=== PATIENT | female | born 1940 | race African-American/Black ===

== ENCOUNTER 2017-03-30 11:51 | Emergency (ER) | payer MEDICARE ==
[~2017-03-30] VITALS: Ht 172.7 cm; Wt 90.0 kg
[~2017-03-30 11:51] MED LIST: AMLO10 PO; ATOR20TA42 PO; BENA25TA8 PO; CLOP75 PO; COMMODE 3:1; LISI-363 PO; LOPR50TA12 PO; METO50CR PO; PRED20 PO; WALKER ROLLING; WHEELCHAIR RENTAL RA
[2017-03-30 11:57] VITALS: BP_SYST 221; BP_SYST 234; BP_DIAS 101; BP_DIAS 117; PULSE 66; RESP 16; TEMP 98.1; O2SAT 95
[2017-03-30 12:42] VITALS: BP 223/104; PULSE 63; RESP 16; O2SAT 93
[2017-03-30] MEDS ORDERED: SODIUM CHLOR 0.9% 1000 ML INJ 1,000 ML IV SCH (12:46)
[2017-03-30] MEDS ORDERED: ONDANSETRON HCL 4 MG/2 ML VIAL IVP ONE (13:00)
[2017-03-30] MEDS ORDERED: MORPHINE SULFATE 4 MG/ML INJ IV PUSH ONE (13:00)
[2017-03-30] MEDS ORDERED: PLAV75TA29 PO (13:05)
[2017-03-30] MEDS ORDERED: ARIC5TAB2 PO (13:05)
[2017-03-30] MEDS ORDERED: LIPI20TA PO (13:05)
[2017-03-30] MEDS ORDERED: LISI-515 PO (13:05)
[2017-03-30] MEDS ORDERED: TOPR50TA PO (13:05)
[2017-03-30] MEDS ORDERED: AMLO10TA2 PO (13:05)
--- NOTE | 2017-03-30 13:11 | PD ---
HPI Chief Complaint: Abdominal Pain Time Seen by Provider: 13:03 Travel History International Travel<30 days: No Contact w/Intl Traveler<30days: No Traveled to known affect area: No History of Present Illness HPI 77-year-old female that presents to the ED for evaluation of right upper quadrant abdominal pain. Per patient she's had this since this morning. Per patient she went to synagogue and during synagogue the pain became more severe. Per patient the pain feels colicky passing comes and goes and gets better and worse. She still has her gallbladder. She denies any recent surgeries. She states that she felt nauseous but no vomiting. No fevers chills or sweats. No chest pain. No shortness of breath. Pain is mainly on the right upper quadrant of the abdomen as well as just below the breast. She denies any rashes. No sick contacts. Patient does state that she has a history of hypertension and has not taken any of her medications for the past 5 days because the pharmacy does not have the medications ready for her. She has no chest pain. She does have a history of CVA in the past. No headache. No blurry vision. No bowel movement or urinary issues. No history of kidney stones. Has not taken anything for this. Pain per patient gets to be severe 8 out of 10 and gets to be 3 out of 10 which is what she has now. Per patient the pain is almost gone now during my evaluation. PFSH Past Medical History Arthritis: Yes (Knee and Shoulder ) Autoimmune Disease: No Blood Disorders: No Heart Rhythm Problems: No Cancer: No Cardiac Catheterization: Yes Cardiovascular Problems: Yes (STENTS) High Cholesterol: Yes Chest Pain: No Congestive Heart Failure: No Cerebrovascular Accident: Yes (CVA 2014, LEFT SIDED WEAKNESS) Diminished Hearing: No Endocrine: No Gastrointestinal Disorders: Yes (GERD) GERD: Yes Genitourinary: No Headaches: Yes Hiatal Hernia: No Hypertension: Yes Immune Disorder: No Musculoskeletal: Yes (ARTHRITIS) Neurologic: Yes (CVA) Psychiatric: No Reproductive: No Respiratory: No Migraines: No Seizures: No Ulcer: No Past Surgical History Abdominal Surgery: No Appendectomy: Yes Cardiac Surgery: Yes (Cardiac Stent 2005) Coronary Stent: Yes (X1) Ear Surgery: No Endocrine Surgery: No Eye Surgery: No Genitourinary Surgery: No Gynecologic Surgery: Yes (HYSTERECTOMY) Hysterectomy: Yes Oral Surgery: No Thoracic Surgery: No Other Surgery: Yes (KNEE SURGERY; HYSTERECTOMY) Social History Alcohol Use: No Tobacco Use: No Substance Use: No Allergies-Medications (Allergen,Severity, Reaction): Coded Allergies: Sulfa (Verified Allergy, Severe, ITCH AND SWELL, 03/01/16) Reported Meds & Prescriptions Reported Meds & Active Scripts Active Tramadol (Tramadol HCl) 50 Mg Tab 50 Mg PO Q6H PRN Reported Amlodipine (Amlodipine Besylate) 10 Mg Tab 10 Mg PO DAILY Lisinopril 20 Mg Tab 20 Mg PO DAILY Toprol XL (Metoprolol Succinate) 50 Mg Tab 50 Mg PO DAILY Plavix (Clopidogrel Bisulfate) 75 Mg Tab 75 Mg PO DAILY Lipitor (Atorvastatin Calcium) 20 Mg Tab 20 Mg PO HS Aricept (Donepezil HCl) 5 Mg Tablet 5 Mg PO DAILY Review of Systems Except as stated in HPI: all other systems reviewed are Neg Physical Exam Narrative GENERAL: SKIN: Warm and dry. HEAD: Atraumatic. Normocephalic. EYES: Pupils equal and round. No scleral icterus. No injection or drainage. ENT: No nasal bleeding or discharge. Mucous membranes pink and moist. Tongue is midline. No uvula deviation. NECK: Trachea midline. No JVD. CARDIOVASCULAR: Regular rate and rhythm. No murmurs, S3, S4. RESPIRATORY: No accessory muscle use. Clear to auscultation. Breath sounds equal bilaterally. GASTROINTESTINAL: Abdomen soft, tender to palpation on the right upper quadrant but no Case sign noted, nondistended. Hepatic and splenic margins not palpable. MUSCULOSKELETAL: Extremities without clubbing, cyanosis, or edema. No obvious deformities. Full range of motion of the upper and lower extremities bilaterally. 2+ pulses bilaterally. NEUROLOGICAL: Awake and alert. No obvious cranial nerve deficits. Motor grossly within normal limits. Five out of 5 muscle strength in the arms and legs. Normal speech. PSYCHIATRIC: Appropriate mood and affect; insight and judgment normal. Data Data Last Documented VS Vital Signs Date Time Temp Pulse Resp B/P Pulse Ox O2 Delivery O2 Flow Rate FiO2 03/30/17 14:35 59 16 178/91 99 03/30/17 13:18 Room Air 03/30/17 11:57 98.1 Orders Complete Blood Count With Diff (03/30/17 12:46) Comprehensive Metabolic Panel (03/30/17 12:46) Lipase (03/30/17 12:46) Lactic Acid (03/30/17 12:46) Urinalysis - C+S If Indicated (03/30/17 12:46) Us Abdomen Gallbladder (03/30/17 ) Iv Access Insert/Monitor (03/30/17 12:46) Ecg Monitoring (03/30/17 12:46) Oximetry (03/30/17 12:46) Morphine Inj (Morphine Inj) (03/30/17 13:00) Ondansetron Inj (Zofran Inj) (03/30/17 13:00) Sodium Chlor 0.9% 1000 Ml Inj (Ns 1000 M (03/30/17 12:46) Chest, Single Ap (03/30/17 12:46) Clonidine (Catapres) (03/30/17 13:15) Ct Abd/Pel W Iv Contrast(Rout) (03/30/17 ) Iohexol 350 Inj (Omnipaque 350 Inj) (03/30/17 15:22) Labs Laboratory Tests Test 03/30/17 13:10 White Blood Count 7.3 TH/MM3 Red Blood Count 4.55 MIL/MM3 Hemoglobin 12.6 GM/DL Hematocrit 38.0 % Mean Corpuscular Volume 83.5 FL Mean Corpuscular Hemoglobin 27.6 PG Mean Corpuscular Hemoglobin 33.1 % Concent Red Cell Distribution Width 15.4 % Platelet Count 247 TH/MM3 Mean Platelet Volume 8.5 FL Neutrophils (%) (Auto) 77.7 % Lymphocytes (%) (Auto) 14.9 % Monocytes (%) (Auto) 5.1 % Eosinophils (%) (Auto) 1.6 % Basophils (%) (Auto) 0.7 % Neutrophils # (Auto) 5.7 TH/MM3 Lymphocytes # (Auto) 1.1 TH/MM3 Monocytes # (Auto) 0.4 TH/MM3 Eosinophils # (Auto) 0.1 TH/MM3 Basophils # (Auto) 0.0 TH/MM3 CBC Comment DIFF FINAL Differential Comment Urine Color LIGHT-YELLOW Urine Turbidity CLEAR Urine pH 6.5 Urine Specific [place] 1.017 Urine Protein 30 mg/dL Urine Glucose (UA) NEG mg/dL Urine Ketones NEG mg/dL Urine Occult Blood NEG Urine Nitrite NEG Urine Bilirubin NEG Urine Urobilinogen LESS THAN 2.0 MG/DL Urine Leukocyte Esterase MOD Urine RBC LESS THAN 1 /hpf Urine WBC 4 /hpf Urine Squamous Epithelial 3 /hpf Cells Urine Bacteria OCC /hpf Urine Hyaline Casts 1 /lpf Urine Mucus FEW /lpf Microscopic Urinalysis Comment CULT NOT INDICATED Sodium Level 144 MEQ/L Potassium Level 3.5 MEQ/L Chloride Level 107 MEQ/L Carbon Dioxide Level 28.8 MEQ/L Anion Gap 8 MEQ/L Blood Urea Nitrogen 15 MG/DL Creatinine 0.74 MG/DL Estimat Glomerular Filtration 92 ML/MIN Rate Random Glucose 89 MG/DL Lactic Acid Level 1.3 mmol/L Calcium Level 8.9 MG/DL Total Bilirubin 0.5 MG/DL Aspartate Amino Transf 9 U/L (AST/SGOT) Alanine Aminotransferase 13 U/L (ALT/SGPT) Alkaline Phosphatase 76 U/L Total Protein 7.6 GM/DL Albumin 3.6 GM/DL Lipase 83 U/L [facility] Medical Decision Making Medical Screen Exam Complete: Yes Emergency Medical Condition: Yes Medical Record Reviewed: Yes Interpretation(s) CBC & BMP Diagram 03/30/17 13:10 Last Impressions Chest X-Ray 03/30/17 1246 Signed Impressions: Service Date/Time: Thursday, March 30, 2017 12:56 - CONCLUSION: Minimal linear atelectasis right lung base. Amy Mosqueda MD Gall Bladder Ultrasound 03/30/17 0000 Signed Impressions: Service Date/Time: Thursday, March 30, 2017 13:46 - CONCLUSION: 1. The liver is slightly echogenic which maybe due to fatty infiltration and or hepatocellular dysfunction. 2. Right renal cyst and possibly a small angiomyolipoma or scar in the right kidney filled with fat. Amy Mosqueda MD Abdomen/Pelvis CT 03/30/17 0000 Signed Impressions: Service Date/Time: Thursday, March 30, 2017 15:14 - CONCLUSION: 1. Liver is slightly nodular may be related to early morphologic changes of cirrhosis. 2. Subcentimeter hepatic low-density and 12 mm enhancing lesion towards the dome, nonspecific. Nonemergent contrasted MRI may be warranted. 3. Renal low densities some of which are indeterminant. 4. Diverticulosis without diverticulitis. 5. Tiny left pleural effusion. Stanley Crisostomo MD LFTS and lipase WNL troponin and CKMB negative EKG shows sinus rhythm with no sign of acute ischemia or arrhythmia. Read By me and attending. Differential Diagnosis Cholelithiasis versus cholecystitis versus kidney disease versus hypertension versus hypertensive urgency versus noncompliant versus cardiac chest pain versus pancreatitis Narrative Course 77-year-old female that presents to the ED for evaluation of right upper quadrant pain. Patient was properly examined and was found to have signs and symptoms of unclear etiology. I suspect abdominal in nature secondary to nausea as well as the area where the pain is. Patient will be given pain medications and antiemetics. IV established. Labs and imaging ordered. Labs and imaging showed steatotic liver breath and some cysts but otherwise unremarkable. No obvious source of the patient's pain. I did recommend to the family and patient the patient is to follow-up outpatient for further evaluation of the abnormal findings on the liver. Patient and family agree with plan. Patient feels improved. Patient will be given report of the imaging to follow up with Dr. yeung. Patient was given a prescription for tramadol for pain. Told to follow closely with PCP. See ED worsening symptoms. Take her blood pressure medications. Diagnosis Primary Impression: RUQ abdominal pain Additional Impression: Fatty liver Patient Instructions: General Instructions, Narcotic given in the ED Additional Instructions: Take medications as prescribed. Follow-up with PCP this week See ED for any worsening symptoms. Do not drink or drive while taking pain medication. Med/Other Pt SpecificInfo: Prescription(s) given Scripts Tramadol 50 Mg Tab50 Mg PO Q6H PRN (PAIN) #15 TAB Ref 0 Prov:Jj Nick MD 03/30/17 Disposition: 01 DISCHARGE HOME Condition: Stable Darrel Reyez Mar 30, 2017 13:11
[2017-03-30] MEDS ORDERED: cloNIDine HCL 0.1 MG TAB PO ONE (13:15)
[2017-03-30 13:35] LABS: BACTERIA, URINE OCC /hpf; BLOOD, URINE NEG (NEG); COMMENT (UR) CULT NOT INDICATED; CULTURE IF INDICATED CULT NOT INDICATED; GLUCOSE,URINE NEG (NEG); HYALINE CAST, URINE 1 /lpf (RARE); KETONE, URINE NEG (NEG); MUCUS URINE FEW /lpf (OCC); NITRITE,URINE NEG (NEG); PH, URINE 6.5 (5.0-8.5); SQUAMOUS EPITHELIAL CELL URINE 3 /hpf (0-5); URINE COLOR LIGHT-YELLOW (YELLW/STRAW)
[2017-03-30 13:41] LABS: AUTOMATED NEUTROPHIL # 5.7 TH/MM3 (1.8-7.7); BASOPHIL % 0.7 % (0.0-2.0); EOSINOPHIL # 0.1 TH/MM3 (0-0.4); EOSINOPHIL % 1.6 % (0.0-4.0); HEMO FLAGS DIFF FINAL; LYMPH % 14.9 % (9.0-44.0); LYMPHOCYTE # 1.1 TH/MM3 (1.0-4.8); MEAN CELL VOLUME 83.5 FL (80.0-100.0); MEAN CORPUSCULAR HEMOGLOBIN 27.6 PG (27.0-34.0); MEAN CORPUSCULAR HGB CONC 33.1 % (32.0-36.0); MONO % 5.1 % (0.0-8.0); NEUT % 77.7 % (16.0-70.0); PLATELET COUNT 247 TH/MM3 (150-450); RED BLOOD COUNT 4.55 MIL/MM3 (4.00-5.30); RED CELL DISTRIBUTION WIDTH 15.4 % (11.6-17.2); WHITE BLOOD COUNT 7.3 TH/MM3 (4.0-11.0)
--- NOTE | 2017-03-30 13:46 | RADRPT ---
EXAM DATE/TIME: 03/30/2017 12:56 [facility] COMPARISON: CHEST SINGLE AP, February 19, 2015, 12:06. INDICATIONS : Right side chest pain. MEDICAL HISTORY : None. SURGICAL HISTORY : None. ENCOUNTER: Initial ACUITY: 1 day PAIN SCORE: 6/10 LOCATION: Right lower chest FINDINGS: The lungs are clear without infiltrate, nodule, or mass except for minimal linear atelectasis in righ t lung base. There is no appreciable pleural effusion for technique. Heart and mediastinum are unre markable. CONCLUSION: Minimal linear atelectasis right lung base. Amy Mosqueda MD on March 30, 2017 at 13:44 Board Certified Radiologist. This report was verified electronically.
[2017-03-30 13:49] LABS: ALT (GPT) 13 U/L (10-53); ANION GAP 8 MEQ/L (5-15); AST (GOT) 9 U/L (15-37); BICARBONATE 28.8 MEQ/L (21.0-32.0); BLOOD UREA NITROGEN 15 MG/DL (7-18); CHLORIDE 107 MEQ/L (98-107); GLOMERULAR FILTRATION RATE 92 ML/MIN (>89); POTASSIUM 3.5 MEQ/L (3.5-5.1); SODIUM (NA) 144 MEQ/L (136-145)
[2017-03-30 13:51] LABS: ALKALINE PHOSPHATASE 76 U/L (45-117); TOTAL BILIRUBIN ADULT 0.5 MG/DL (0.2-1.0)
[2017-03-30 14:35] VITALS: BP 178/91; PULSE 59; RESP 16; O2SAT 99
--- NOTE | 2017-03-30 14:35 | RADRPT ---
EXAM DATE/TIME: 03/30/2017 13:46 [facility] COMPARISON: No previous studies available for comparison. INDICATIONS : Right upper quadrant pain. MEDICAL HISTORY : Stroke. Hypercholesterolemia. Gastroesophageal reflux disease. Wears glasses. Dentures. Coronary trisha ry disease. Hyperlipidemia. Hypertension. Arthritis. SURGICAL HISTORY : Appendectomy. Hysterectomy. Cardiac stents. Cardiac catheterization. Knee surgery. ENCOUNTER: Initial ACUITY: 2 days PAIN SCORE: 2/10 LOCATION: Right upper quadrant MEASUREMENTS: LIVER: 15.9 cm length COMMON DUCT: 4 mm RIGHT KIDNEY: 12.6 x 4.4 x 5.2 cm FINDINGS: The liver is slightly echogenic which maybe due to fatty infiltration and or hepatocellular dysfuncti on. The gallbladder is intact without any evidence for gallstones, gallbladder wall thickening, or pe richolecystic fluid. The visualized head of the pancreas appears grossly intact for technique. There is an approximate 2.3 cm cyst in the right kidney with an echogenic area measures 1.3 cm and upper p ole may be a small angiomyolipoma or possibly scar filled with fat. CONCLUSION: 1. The liver is slightly echogenic which maybe due to fatty infiltration and or hepatocellular dysfun ction. 2. Right renal cyst and possibly a small angiomyolipoma or scar in the right kidney filled with fat. Amy Mosqueda MD on March 30, 2017 at 14:32 Board Certified Radiologist. This report was verified electronically.
[2017-03-30] MEDS ORDERED: IOHEXOL 350 MG/ML 10 ML VIAL (for RAD DIAG) IV ONE (15:22)
--- NOTE | 2017-03-30 15:38 | RADRPT ---
EXAM DATE/TIME: 03/30/2017 15:14 [facility] COMPARISON: No previous studies available for comparison. INDICATIONS : Right upper quadrant abdominal pain.Nausea, increased blood pressure. IV CONTRAST: 100 cc Omnipaque 350 (iohexol) IV ORAL CONTRAST: No oral contrast ingested. RADIATION DOSE: 100 CTDIvol (mGy) MEDICAL HISTORY : Cardiovascular disease. Hypertension. Cerebrovascular disease. SURGICAL HISTORY : Appendectomy. Hysterectomy. ENCOUNTER: Initial ACUITY: 1 day PAIN SCALE: 5/10 LOCATION: Right upper quadrant TECHNIQUE: Volumetric scanning of the abdomen and pelvis was performed. Using automated exposure control and ad justment of the mA and/or kV according to patient size, radiation dose was kept as low as reasonably achievable to obtain optimal diagnostic quality images. DICOM format image data is available electro nically for review and comparison. FINDINGS: LOWER LUNGS: The visualized lower lungs are clear. Tiny left pleural effusion. LIVER: Slightly nodular without dilation of the biliary tree. No calcified gallstones. Small enhancing live r lesion towards the right dome. Subcentimeter low-density. SPLEEN: Normal size without lesion. PANCREAS: Within normal limits. KIDNEYS: Normal in size and shape. There is no mass, stone or hydronephrosis. Numerous low-density lesions. ADRENAL GLANDS: Within normal limits. VASCULAR: There is no aortic aneurysm. BOWEL/MESENTERY: The stomach, small bowel, and colon demonstrate no acute abnormality. There is no free intraperitone al air or fluid. ABDOMINAL WALL: Within normal limits. RETROPERITONEUM: There is no lymphadenopathy. BLADDER: No wall thickening or mass. REPRODUCTIVE: Within normal limits. INGUINAL: There is no lymphadenopathy or hernia. MUSCULOSKELETAL: Within normal limits for patient age. CONCLUSION: 1. Liver is slightly nodular may be related to early morphologic changes of cirrhosis. 2. Subcentimeter hepatic low-density and 12 mm enhancing lesion towards the dome, nonspecific. Noneme rgent contrasted MRI may be warranted. 3. Renal low densities some of which are indeterminant. 4. Diverticulosis without diverticulitis. 5. Tiny left pleural effusion. Stanley Crisostomo MD on March 30, 2017 at 15:33 Board Certified Radiologist. This report was verified electronically.
[2017-03-30] MEDS ORDERED: TRAM50TA PO (15:48)
--- NOTE | 2017-03-30 18:51 | EKG ---
Date Performed: 03/30/2017 Time Performed: 12:42:36 PTAGE: 77 years EKG: Sinus rhythm T-WAVE ABNORMALITY, CONSIDER ANTERIOR ISCHEMIA ABNORMAL ECG NO PREVIOUS TRACING DOCTOR: Jim Mckinney Interpretating Date/Time 03/30/2017 18:50:22
== END 2017-03-30 16:21 | disposition home or self-care (01) ==
LOC: NEPC 11:51
DX: K76.0 Fatty (change of) liver, not elsewhere classified (principal); K74.60 Unspecified cirrhosis of liver; K57.90 Diverticulosis of intestine, part unspecified, without perforation or abscess without bleeding; R94.31 Abnormal electrocardiogram [ECG] [EKG]; M13.869 Other specified arthritis, unspecified knee; M13.819 Other specified arthritis, unspecified shoulder; E78.00 Pure hypercholesterolemia, unspecified; K21.9 Gastro-esophageal reflux disease without esophagitis; I10 Essential (primary) hypertension
CPT/HCPCS: 71010; 74177; 76705; 80053; 81001; 83605; 83690; 85025; 93005; 96374; 96375; 99285; J2270; J2405; J7030; Q9967